=== PATIENT | male | born 1970 | race Asian ===

== ENCOUNTER 2016-04-20 22:38 | Emergency (ER) | payer BC ==
[~2016-04-20] VITALS: Ht 160 cm; Wt 60.0 kg
[~2016-04-20 22:38] MED LIST: AZIT500T5 PO; DEC4 PO; DIAZ-90 PO; NAPR-688 PO; ONDA4TAB14 PO; RANI150T9 PO
[2016-04-20 22:48] VITALS: Ht 160 cm; Wt 60.0 kg
[2016-04-20] MEDS ORDERED: ASPIRIN 81 MG TAB PO STA (22:50)
[2016-04-20] MEDS ORDERED: ONDANSETRON 4 MG INJ IV STA (22:53)
[2016-04-20] MEDS ORDERED: NITROGLYCERIN (SL) 0.4 MG TAB SL PRN (23:00)
[2016-04-20 23:26] LABS: BASOPHILS % 0.5 % (0.0-2.0); EOSINOPHILS # 0.2 10^3/ul (0.0-0.5); EOSINOPHILS % 3.3 % (0.0-7.0); HEMATOCRIT 47.3 % (42.0-52.0); HEMOGLOBIN 16.1 g/dl (14.0-18.0); LYMPHOCYTES # 1.2 10^3/ul (0.8-2.9); LYMPHOCYTES % 16.1 % (15.0-51.0); MEAN CORPUSCULAR HEMOGLOBIN 29.1 pg (29.0-33.0); MEAN CORPUSCULAR HGB CONC 34.1 g/dl (32.0-37.0); MEAN CORPUSCULAR VOLUME 85.4 fl (82.0-101.0); MEAN PLATELET VOLUME 7.1 fl (7.4-10.4); MONOCYTES % 13.5 % (0.0-11.0); NEUTROPHIL # 4.8 10^3/ul (1.6-7.5); NEUTROPHILS % 66.6 % (39.0-77.0); PLATELET COUNT 338 10^3/UL (140-440); RED BLOOD COUNT 5.53 10^6/ul (4.70-6.10); RED CELL DISTRIBUTION WIDTH 13.6 % (11.5-14.5); UNCORRECTED WBC 7.2 10^3/ul (4.8-10.8); WHITE BLOOD COUNT 7.2 10^3/ul (4.8-10.8)
[2016-04-20 23:29] LABS: CHLORIDE 102 mmol/L (97-110); POTASSIUM 3.7 mmol/L (3.5-5.1); SODIUM 142 mmol/L (135-144)
[2016-04-20 23:32] LABS: ANION GAP 18 (8-16); BLOOD UREA NITROGEN 17 mg/dl (7-20); CALCIUM 9.2 mg/dl (8.4-10.2); CARBON DIOXIDE 26 mmol/L (21-31); CREATININE 0.69 mg/dl (0.61-1.24); GLUCOSE 110 mg/dl (70-220)
[2016-04-20 23:33] LABS: CONDITION 1
[2016-04-20 23:51] LABS: TROPONIN-I < 0.012 ng/ml (0.00-0.12)
[2016-04-21 00:16] LABS: PROTIME 12.1 Sec (12.2-14.2); PT RATIO 0.9
[2016-04-21 00:17] LABS: PARTIAL THROMBOPLASTIN TIME 29.4 Sec (25.0-35.0)
--- NOTE | 2016-04-21 00:23 | RADRPT ---
PROCEDURE: CHEST - 1 VIEW CLINICAL INDICATION: 45-year-old male with chest pain. TECHNIQUE: A single frontal AP semi-erect view of the chest was performed portably. The images we re reviewed on a PACS workstation. COMPARISON: Chest x-ray February 23, 2015. FINDINGS: The cardiomediastinal silhouette has a normal appearance. There is no evidence for an infiltrate. There is no evidence for congestive heart failure. There is no evidence for pneumothorax. The osseou s structures are intact. IMPRESSION: No evidence for active cardiopulmonary disease. .Rolando Bhakta MD, MD Date Time Electronically viewed and signed by .Rolando Bhakta MD, MD on 04/21/2016 00:22 .Timmy/
[2016-04-21 00:35] LABS: D-DIMER < 220.00 ng/ml (<460)
[2016-04-21] MEDS ORDERED: KETOROLAC 15 MG INJ IV STA (01:13)
[2016-04-21 03:27] VITALS: BP 117/85; PULSE 72; RESP 16
[2016-04-21 04:00] LABS: ALBUMIN 4.3 g/dl (3.3-4.9)
[2016-04-21 04:03] LABS: TOTAL PROTEIN 7.3 g/dl (6.1-8.1)
[2016-04-21] MEDS ORDERED: RANI150T9 PO (04:10)
--- NOTE | 2016-04-21 04:10 | ERD ---
ER Documentation Chief Complaint Date/Time DATE: 04/21/16 TIME: 04:08 Chief Complaint CP x 2 hours left lower chest, feeling of not getting full breath of air HPI This is a 45-year-old male who presents to the emergency room for evaluation of chest pain. The patient states that he has had chest pain for the past 3 hours and states is an achy pain localized in the left portion of his chest with no radiation. No shortness of breath, associated diaphoresis or nausea or vomiting. The patient states it is worse when he takes a deep breath in and came to the ER for evaluation. ROS All systems reviewed and are negative except as per history of present illness. Medications Home Meds Discontinued Scripts Ondansetron (Ondansetron Odt) 4 Mg Tab.rapdis, 4 MG PO Q6H Y for NAUSEA AND/OR VOMITING, #20 TAB Prov:ARMONDRICHARD DO 11/14/15 Dexamethasone* (Decadron*) 4 Mg Tab, 8 MG PO ONCE, #1 TAB Prov:RICHARD LEAHY DO 11/14/15 Naproxen* (Naproxen*) 500 Mg Tablet, 500 MG PO BID, #14 TAB Prov:ARMONDRICHARD DO 11/14/15 Azithromycin* (Azithromycin*) 500 Mg Tablet, 500 MG PO DAILY, #3 TAB Prov:RICHARD LEAHY DO 11/14/15 Diazepam* (Valium*) 5 Mg Tablet, 5 MG PO Q8 Y for ANXIETY, #20 TAB Prov:SUNDEEP MAJOR 02/24/15 Ranitidine Hcl* (Zantac*) 150 Mg Tablet, 150 MG PO BID Y for GASTROINTESTINAL UPSET, #30 TAB Prov:ROSITA MARTINEZ 02/23/15 Allergies Allergies: Coded Allergies: No Known Allergies (Verified Allergy, Unknown, 04/20/16) PMhx/Soc History of Surgery: Yes (LAP GABRIELLA (2008), lap appendectomy) Anesthesia Reaction: No Hx Neurological Disorder: No Hx Respiratory Disorders: No Hx Cardiac Disorders: No Hx Psychiatric Problems: No Hx Miscellaneous Medical Probl: No Hx Alcohol Use: No Hx Substance Use: No Hx Tobacco Use: No Smoking Status: Unknown if ever smoked Physical Exam Vitals Vital Signs Date Time Temp Pulse Resp B/P Pulse Ox O2 Delivery O2 Flow Rate FiO2 04/21/16 03:27 72 16 117/85 99 Nasal Cannula 2.0 04/21/16 02:30 66 119/90 04/20/16 22:55 Nasal Cannula 2 04/20/16 22:48 98.3 93 20 131/97 99 Physical Exam INITIAL VITAL SIGNS: Reviewed by me GENERAL: The patient is well developed and appropriate for usual state of health in no apparent distress HEENT: Pupils equal, round, and reactive to light. EOMI. There is no scleral icterus. NECK: C-spine is soft and supple, there is no meningismus. There is no cervical lymphadenopathy. LUNGS: Clear to auscultation bilaterally. There are no rales, wheezes or rhonchi. HEART: Regular rate and rhythm, no murmurs, clicks, rubs or gallops. ABDOMEN: Soft, non-tender, non-distended. There are bowel sounds in all four quadrants. No rebound or guarding. EXTREMITIES: There is no peripheral cyanosis or edema. No focal swelling or erythema. NEUROLOGICAL: The patient moves all four extremities with 5/5 strength. Cranial nerves II - XII are intact. Normal gait. Alert and oriented SKIN: There is no apparent rash or petechiae. HEME/LYMPHATIC: There is no evidence of excessive bruising or lymphedema. PSYCHIATRIC: The patient does not appear anxious or depressed. Result Diagram: 04/20/16225504/20/162255 Results 24 hrs Laboratory Tests Test 04/20/16 22:56 04/21/16 02:26 04/21/16 03:53 Activated Partial Thromboplast Time 29.4Sec Anion Gap 18 Basophils # 0.010^3/ul Basophils % 0.5% Blood Morphology Comment Blood Urea Nitrogen 17mg/dl Calcium Level 9.2mg/dl Carbon Dioxide Level 26mmol/L Chloride Level 102mmol/L Creatinine 0.69mg/dl D-Dimer < 220.00ng/ml D-Dimer Comment Eosinophils # 0.210^3/ul Eosinophils % 3.3% Glucose Level 110mg/dl Hematocrit 47.3% Hemoglobin 16.1g/dl INR International Normalized Ratio 0.90 Lymphocytes # 1.210^3/ul Lymphocytes % 16.1% Mean Corpuscular Hemoglobin 29.1pg Mean Corpuscular Hemoglobin Concent 34.1g/dl Mean Corpuscular Volume 85.4fl Mean Platelet Volume 7.1fl Monocytes # 1.010^3/ul Monocytes % 13.5% Neutrophils # 4.810^3/ul Neutrophils % 66.6% Nucleated Red Blood Cells # 0.010^3/ul Nucleated Red Blood Cells % 0.0/100WBC Platelet Count 92490^3/UL Potassium Level 3.7mmol/L Prothrombin Time 12.1Sec Prothrombin Time Ratio 0.9 Red Blood Count 5.5310^6/ul Red Cell Distribution Width 13.6% Sodium Level 142mmol/L Troponin I < 0.012ng/ml < 0.012ng/ml White Blood Count 7.210^3/ul Alanine Aminotransferase (ALT/SGPT) 71IU/L Albumin 4.3g/dl Alkaline Phosphatase 73IU/L Aspartate Amino Transf (AST/SGOT) 50IU/L Direct Bilirubin 0.00mg/dl Indirect Bilirubin 0.0mg/dl Lipase 165U/L Total Bilirubin 0.0mg/dl Total Protein 7.3g/dl Current Medications Medications (Trade) Dose Ordered Sig/Jessica Route PRN Reason Start Time Stop Time Status Last Admin Dose Admin Aspirin (Aspirin) 162 mg ONCE STAT PO 04/20/16 22:50 04/20/16 22:51 DC 04/20/16 22:58 Nitroglycerin (Nitroglycerin (Sl Tab) 0.4 Mg) 1 tab Q5M UP TO 3 DOSES PRN SL CHEST PAIN 04/20/16 23:00 04/20/16 22:58 Ondansetron HCl (Zofran Inj) 4 mg ONCE STAT IV 04/20/16 22:53 04/20/16 22:54 DC 04/20/16 22:58 Ketorolac Tromethamine (Toradol) 15 mg ONCE STAT IV 04/21/16 01:13 04/21/16 01:14 DC Procedures/MDM EKG: Rate/Rhythm: [Normal Sinus Rhythm] QRS, ST, T-waves: [No changes consistent w/ acute ischemia] Impression: [No evidence of ischemia or arrhythmia] Chest X-ray 1V Interpreted by me: Soft Tissue: No acute abnormalities Bones: No acute abnormalities Mediastinum/Cardiac Silhouette/Lungs: [No acute abnormalities] This is a 45-year-old male who presents to the emergency room for evaluation of chest pain and mild shortness of breath. This patient has no history of hypertension, hyperlipidemia, he is not a smoker, and has no family history of CAD. This patient underwent a cardiac workup including a troponin which was negative. I did do a second troponin at 3 hours which was also normal. This patient chest x-ray is clear. His d-dimer is also normal. This patient is in no acute distress at this time. He has a heart score of 0. And will be discharged home with a prescription for Zantac for possible GERD. I advised this patient to follow-up with his primary care physician and set up an outpatient stress test and he verbalized understanding. Differential diagnoses entertained was broad with potential high acuity. Patient has been evaluated for acute myocardial infarction, unstable angina, aortic dissection, pulmonary embolism, other intrathoracic and cardiac concerns. Ultimately the patient's evaluation is nondiagnostic. Based on the patient's lack of risk factors, as well as the patient's clinical, laboratory, and imaging data, the patient appears to be low risk for these high risk causes of chest pain. Departure Diagnosis: Primary Impression: Chest pain Additional Impression: GERD (gastroesophageal reflux disease) Condition: Stable DIANA HOPE DO Apr 21, 2016 04:10
== END 2016-04-21 04:16 | disposition home or self-care (01) ==
LOC: E/R 22:38
DX: R07.9 Chest pain, unspecified (principal); K21.9 Gastro-esophageal reflux disease without esophagitis
CPT/HCPCS: 71010; 80048; 80076; 83690; 84484; 85025; 85378; 85610; 85730; 93005; J2405; 36415; 96374; J1885